=== PATIENT | male | born 1960 | race Caucasian/White ===

== ENCOUNTER 2023-07-15 12:32 | Inpatient (IN) | payer OTHER ==
[2023-07-15 13:14] VITALS: BMI 35.2
[2023-07-15] MEDS ORDERED: guaiFENesin 600 MG TABLET.ER (FP) PO PRN (15:05)
[2023-07-15] MEDS ORDERED: LOPERAMIDE HCL 2 MG CAPSULE PO PRN (15:05)
[2023-07-15] MEDS ORDERED: BENZOCAINE/MENTHOL (CHLORASEPTIC ) LOZENGE MM PRN (15:05)
[2023-07-15] MEDS ORDERED: ACETAMINOPHEN 325 MG TABLET (FP) PO PRN (15:05)
[2023-07-15] MEDS ORDERED: IBUPROFEN 400 MG TABLET (FP) PO PRN (15:05)
[2023-07-15] MEDS ORDERED: NALOXONE HCL 0.4 MG/ML VIAL IM PRN (15:05)
[2023-07-15] MEDS ORDERED: DICYCLOMINE HCL 10 MG CAPSULE PO PRN (15:05)
[2023-07-15] MEDS ORDERED: ONDANSETRON *ODT* 4 MG TABLET SL PRN (15:05)
[2023-07-15] MEDS ORDERED: BENZONATATE 200 MG CAPSULE PO PRN (15:05)
[2023-07-15] MEDS ORDERED: MAG HYDROX/AL HYDROX/SIMETH 30 ML UNIT-DOSE CUP PO PRN (15:05)
[2023-07-15] MEDS ORDERED: NALOXONE HCL (KLOXXADO) 8 MG SPRAY NS PRN (15:05)
[2023-07-15] MEDS ORDERED: LORazepam 1 MG TABLET PO PRN (15:05)
[2023-07-15] MEDS ORDERED: BISMUTH SUBSALICYLATE 262 MG/15 ML BTL PO PRN (15:05)
[2023-07-15] MEDS ORDERED: MAGNESIUM HYDROX 2400MG/30ML ORAL SUSPENSION 30 ML CUP PO PRN (15:05)
[2023-07-15] MEDS ORDERED: POLYETHYLENE GLYCOL (HEALTHYLAX) 3350 17 GM PACKET PO PRN (15:05)
[2023-07-15] MEDS ORDERED: IBUPROFEN 600 MG TABLET (FP) PO PRN (15:05)
[2023-07-15] MEDS ORDERED: cloNIDine HCL 0.1 MG TABLET PO ONE (15:43)
[2023-07-15] MEDS ORDERED: cloNIDine HCL 0.1 MG TABLET ONE (15:55)
[2023-07-15] MEDS ORDERED: PRENATAL VITAMINS W/ FOLIC ACID TABLET (FP) PO ONE (15:55)
[2023-07-15] MEDS: PRENATAL VITAMINS W/ FOLIC ACID TABLET (FP) PO SCH (15:56)
[2023-07-15] MEDS: LORazepam 2 MG TABLET PO SCH ×2 (17:18→22:36)
[2023-07-15] MEDS: MELATONIN 5 MG TABLETS PO SCH (22:36)
[2023-07-15] MEDS: METHOCARBAMOL 500 MG TABLET PO PRN (22:36)
[2023-07-15] MEDS: THIAMINE HCL 100 MG TABLET (FP) PO SCH (22:36)
[2023-07-15] MEDS: hydrOXYzine PAMOATE 25 MG CAPSULE (FP) PO PRN (22:36)
[2023-07-16] MEDS: LORazepam 2 MG TABLET PO SCH ×4 (05:36→22:35)
[2023-07-16 10:09] LABS: HEMATOCRIT 34.5 % (35.4-49); HEMOGLOBIN 11.4 GM/dL (11.7-16.9); MCH 28.7 pg (25.7-33.7); MEAN CELL VOLUME 86.9 fl (80-96); MEAN PLT VOLUME 10.4 fl (7.5-11.1); PLATELET COUNT 159 10^3/uL (134-434); RBC 3.97 M/mm3 (4.00-5.60); RDW 15.6 % (11.9-15.9); WHITE BLOOD COUNT 4.7 K/mm3 (4.0-10.0)
[2023-07-16] MEDS: PRENATAL VITAMINS W/ FOLIC ACID TABLET (FP) PO SCH (10:23)
[2023-07-16 10:30] LABS: POTASSIUM 3.8 mmol/L (3.5-5.1)
[2023-07-16 10:44] LABS: ALBUMIN 3.2 g/dl (3.4-5.0)
[2023-07-16 10:45] LABS: CALCIUM 9.2 mg/dL (8.5-10.1)
[2023-07-16 10:47] LABS: CREATININE 0.7 mg/dL (0.55-1.3)
[2023-07-16 10:48] LABS: BILIRUBIN,TOTAL 0.9 mg/dL (0.2-1); TOT PROT 6.1 g/dl (6.4-8.2)
[2023-07-16] MEDS: LACTULOSE 20 GM/30 ML UDC (FOR ORAL USE ONLY) PO SCH ×2 (13:53→22:36)
[2023-07-16] MEDS: cloNIDine HCL 0.1 MG TABLET PO PRN ×2 (17:39→22:36)
[2023-07-16] MEDS: MELATONIN 5 MG TABLETS PO SCH (22:36)
[2023-07-16] MEDS: THIAMINE HCL 100 MG TABLET (FP) PO SCH (22:36)
[2023-07-17] MEDS: LORazepam 1 MG TABLET PO SCH ×4 (05:44→22:34)
[2023-07-17] MEDS: LACTULOSE 20 GM/30 ML UDC (FOR ORAL USE ONLY) PO SCH ×3 (05:44→22:33)
[2023-07-17] MEDS: PRENATAL VITAMINS W/ FOLIC ACID TABLET (FP) PO SCH (10:26)
[2023-07-17] MEDS: MELATONIN 5 MG TABLETS PO SCH (22:33)
[2023-07-17] MEDS: hydrOXYzine PAMOATE 25 MG CAPSULE (FP) PO PRN (22:33)
[2023-07-17] MEDS: METHOCARBAMOL 500 MG TABLET PO PRN (22:33)
[2023-07-17] MEDS: cloNIDine HCL 0.1 MG TABLET PO PRN (22:34)
[2023-07-17] MEDS: THIAMINE HCL 100 MG TABLET (FP) PO SCH (22:34)
[2023-07-18] MEDS ORDERED: LORazepam 0.5 MG TABLET PO PRN
[2023-07-18] MEDS: LACTULOSE 20 GM/30 ML UDC (FOR ORAL USE ONLY) PO SCH ×3 (05:37→22:17)
[2023-07-18] MEDS: LORazepam 0.5 MG TABLET PO SCH ×4 (05:37→22:16)
[2023-07-18] MEDS: PRENATAL VITAMINS W/ FOLIC ACID TABLET (FP) PO SCH (10:15)
[2023-07-18] MEDS ORDERED: TRIAMTERENE HCTZ PO SCH (16:00)
[2023-07-18] MEDS ORDERED: [UNRECOGNIZED DRUG - OTHER] PO SCH (16:00)
[2023-07-18] MEDS ORDERED: PATIENT'S OWN MEDICATION (NON-FORMULARY) (Irbesartan [Irbesartan] 150 MG Tablet) PO SCH (16:00)
[2023-07-18] MEDS: THIAMINE HCL 100 MG TABLET (FP) PO SCH (22:16)
[2023-07-18] MEDS: MELATONIN 5 MG TABLETS PO SCH (22:16)
[2023-07-18] MEDS: METHOCARBAMOL 500 MG TABLET PO PRN (22:16)
[2023-07-19] MEDS ORDERED: LORazepam 0.5 MG TABLET PO ONE (05:00)
[2023-07-19] MEDS: LACTULOSE 20 GM/30 ML UDC (FOR ORAL USE ONLY) PO SCH (05:48)
[2023-07-19 09:19] VITALS: BP 134/85; PULSE 80; RESP 18; TEMP 96.8
[2023-07-19] MEDS: PRENATAL VITAMINS W/ FOLIC ACID TABLET (FP) PO SCH (09:45)
[2023-07-19] MEDS ORDERED: TRIAMTERENE AND HCTZ - 37.5 MG/25 MG CAPSULE PO SCH (10:00)
[2023-07-19] MEDS ORDERED: LOSARTAN POTASSIUM 50 MG TABLET PO SCH (10:00)
== END 2023-07-19 09:12 | disposition home or self-care (01) | DRG 897 ==
LOC: YASAS 12:32 → Y3N 15:48
PROVIDERS: ADMIT Allergy & Immunology; ATTEND Surgery
PROC: HZ2ZZZZ Detoxification Services for Substance Abuse Treatment (ICD-10-PCS; principal; 2023-07-15)
DX: F10.230 Alcohol dependence with withdrawal, uncomplicated (principal); F11.20 Opioid dependence, uncomplicated; I10 Essential (primary) hypertension; M15.9 Polyosteoarthritis, unspecified; R79.89 Other specified abnormal findings of blood chemistry; E66.9 Obesity, unspecified; Z68.35 Body mass index [BMI] 35.0-35.9, adult; Z87.891 Personal history of nicotine dependence
CPT/HCPCS: 36415; 80053; 82140; 85027; 86780; 87635; 87811; 93005; 93010